=== PATIENT | female | born 1945 | race Caucasian/White ===

== ENCOUNTER → 2016-12-25 | Outpatient (CLI) | payer MEDICARE, BC ==
[~2016-12-25] MED LIST: CEPHALEXIN500 M1 PO; INDAPAMIDE2.5 MG PO; LEVOTHYROXIN0.088 MG PO; LIPITOR 10MG10 MG PO; METFORMIN HCL500 MG PO; NORCO 325 MG-51 TAB PO; PANTOPRAZOLE SO40 MG PO
== END ==
LOC: MC.RAD 11:20
DX: Z12.31 Encounter for screening mammogram for malignant neoplasm of breast (principal)

== ENCOUNTER → 2017-04-24 | Outpatient (CLI) | payer MEDICARE, BC | LOC: SUN.DIA 14:29 | DX: E11.9 Type 2 diabetes mellitus without complications (principal); Z79.4 Long term (current) use of insulin; E78.5 Hyperlipidemia, unspecified; Z68.24 Body mass index [BMI] 24.0-24.9, adult; Z71.3 Dietary counseling and surveillance | CPT/HCPCS: G0108 ==

== ENCOUNTER → 2017-05-08 | Outpatient (CLI) | payer MEDICARE, BC | LOC: SUN.DIA 10:13 | DX: E11.9 Type 2 diabetes mellitus without complications (principal); Z79.4 Long term (current) use of insulin; E78.5 Hyperlipidemia, unspecified; Z68.24 Body mass index [BMI] 24.0-24.9, adult; Z71.3 Dietary counseling and surveillance ==

== ENCOUNTER → 2017-05-22 | Outpatient (CLI) | payer MEDICARE, BC | LOC: SUN.DIA 10:24 | DX: E11.9 Type 2 diabetes mellitus without complications (principal); Z79.4 Long term (current) use of insulin; E78.5 Hyperlipidemia, unspecified; Z68.24 Body mass index [BMI] 24.0-24.9, adult; Z71.3 Dietary counseling and surveillance ==

== ENCOUNTER → 2017-06-11 | Outpatient (CLI) | payer MEDICARE, BC | LOC: SUN.DIA 16:34 | DX: E11.9 Type 2 diabetes mellitus without complications (principal); Z79.4 Long term (current) use of insulin; E78.5 Hyperlipidemia, unspecified | CPT/HCPCS: G0109 ==

== ENCOUNTER → 2017-06-18 | Outpatient (CLI) | payer MEDICARE, BC | LOC: SUN.DIA 12:19 | DX: E11.9 Type 2 diabetes mellitus without complications (principal); Z79.4 Long term (current) use of insulin; E78.5 Hyperlipidemia, unspecified; Z71.3 Dietary counseling and surveillance | CPT/HCPCS: G0109 ==

== ENCOUNTER → 2017-06-19 | Outpatient (CLI) | payer MEDICARE, BC | LOC: SUN.DIA 10:21 | DX: E11.9 Type 2 diabetes mellitus without complications (principal); Z79.4 Long term (current) use of insulin; E78.5 Hyperlipidemia, unspecified; Z71.3 Dietary counseling and surveillance ==

== ENCOUNTER → 2017-07-02 | Outpatient (CLI) | payer MEDICARE, BC | LOC: SUN.DIA 06-25 10:17 | DX: E11.9 Type 2 diabetes mellitus without complications (principal); Z79.4 Long term (current) use of insulin; E78.5 Hyperlipidemia, unspecified; Z71.3 Dietary counseling and surveillance | CPT/HCPCS: G0109 ==

== ENCOUNTER → 2017-07-23 | Outpatient (CLI) | payer MEDICARE, BC | LOC: SUN.DIA 09:53 | DX: E11.9 Type 2 diabetes mellitus without complications (principal); Z79.4 Long term (current) use of insulin; E78.5 Hyperlipidemia, unspecified; Z71.3 Dietary counseling and surveillance | CPT/HCPCS: G0109 ==

== ENCOUNTER → 2017-07-31 | Outpatient (CLI) | payer MEDICARE, BC | LOC: SUN.DIA 10:11 | DX: E11.9 Type 2 diabetes mellitus without complications (principal); Z79.4 Long term (current) use of insulin; E78.5 Hyperlipidemia, unspecified; Z68.25 Body mass index [BMI] 25.0-25.9, adult; Z71.3 Dietary counseling and surveillance ==

== ENCOUNTER → 2018-01-02 | Outpatient (CLI) | payer MEDICARE, BC | LOC: MC.RAD 11:20 | DX: Z12.31 Encounter for screening mammogram for malignant neoplasm of breast (principal) ==

== ENCOUNTER → 2018-03-12 | Outpatient (CLI) | payer MEDICARE, BC | LOC: SUN.DIA 10:15 | DX: E11.9 Type 2 diabetes mellitus without complications (principal); E78.5 Hyperlipidemia, unspecified; Z79.4 Long term (current) use of insulin | CPT/HCPCS: G0270 ==

== ENCOUNTER → 2018-07-08 | Outpatient (CLI) | payer MEDICARE, BC | LOC: SUN.DIA 09:01 | DX: E11.9 Type 2 diabetes mellitus without complications (principal); E78.5 Hyperlipidemia, unspecified; Z79.4 Long term (current) use of insulin ==

== ENCOUNTER → 2018-11-11 | Outpatient (CLI) | payer MEDICARE, BC | LOC: DIA.ED 10:52 → SUN.DIA 16:37 | DX: E11.9 Type 2 diabetes mellitus without complications (principal); E78.5 Hyperlipidemia, unspecified; Z79.4 Long term (current) use of insulin | CPT/HCPCS: G0270 ==

== ENCOUNTER → 2019-01-06 | Outpatient (CLI) | payer MEDICARE, BC | LOC: MC.RAD 08:56 | DX: Z12.31 Encounter for screening mammogram for malignant neoplasm of breast (principal) ==

== ENCOUNTER → 2019-01-13 | Outpatient (CLI) | payer MEDICARE, BC | LOC: COL.RAD 07:16 | DX: K76.89 Other specified diseases of liver (principal); R97.1 Elevated cancer antigen 125 [CA 125]; Z85.42 Personal history of malignant neoplasm of other parts of uterus; Z90.710 Acquired absence of both cervix and uterus; Z90.722 Acquired absence of ovaries, bilateral | CPT/HCPCS: Q9967 ==

== ENCOUNTER → 2019-01-18 | Outpatient (CLI) | payer MEDICARE, BC ==
[~2019-01-18] VITALS: Ht 170.2 cm; Wt 74.0 kg
[2019-01-18] VITALS (11 sets, daily range): BP systolic 138–216; BP diastolic 50–89; PULSE 59–93
[~2019-01-18] MED LIST changes: +ASPIRIN 32325 MG/TAB PO; +B-121000 MCG PO; +CRESTOR 10MG10 MG PO; +FLONASEALLERGY NS; +GLUCOPHAGE XR500 M1 PO; +KLOR-CON M2020 MEQ PO; +LASIX 20MG TABL20 MG PO; +LEVOXYL0.05 MG PO; +LUTEIN20 M1 PO; +MAG-OX 400400 MG/TAB PO; +MOBIC15 MG PO; +OSTEO-BI-FLEX 21 TAB PO; +PROTONIX20 MG PO; +TRESIBA100 UNIT/1 SQ; +VITAMIN D31000 I1 PO; +ZYRTEC 10MG10 MG PO
[2019-01-18 09:16] LABS: INR 0.9 (0.8-3.0); PROTHROMBIN TIME 9.9 SECONDS (9.7-12.8)
--- NOTE | 2019-01-18 09:50 | NUR ---
PT ON TABLE AND ULTRASOUND COMPLETED. DR HOUGH IN ROOM. MONITORING EQUIPMENT PLACED. DR HOUGH ORDERED 1 MG VERSED AND 25 MCG FENTANYL - GIVEN AT 0953. PT COMFORTABLE.
--- NOTE | 2019-01-18 10:00 | NUR ---
PT SOMEWHAT DROWSY AFTER MEDS. NO PAIN NOTED. PROCEDURE COMPLETED.
--- NOTE | 2019-01-18 12:20 | NUR ---
TOOK PT IN WHEELCHAIR TO FRONT LOBBY AND OUT TO THE POV.
== END ==
LOC: COL.RAD 08:38
PROVIDERS: Internal Medicine
DX: R16.0 Hepatomegaly, not elsewhere classified (principal); K76.9 Liver disease, unspecified
CPT/HCPCS: J2250; J3010

== ENCOUNTER → 2019-01-26 | Outpatient (CLI) | payer MEDICARE, BC | LOC: COL.RAD 13:21 | DX: C25.0 Malignant neoplasm of head of pancreas (principal); E11.9 Type 2 diabetes mellitus without complications | CPT/HCPCS: Q9967 ==

== ENCOUNTER → 2019-11-12 | Outpatient (CLI) | payer MEDICARE, BC ==
[~2019-11-12] MED LIST changes: +AMOXICILLIN 8751 TAB PO; +ATIVAN 0.50.5 MG/TAB PO; +COMPAZINE 110 MG/TAB PO; +DECADRON 4MG TAB4 MG PO; +IMODIUM 2MG CAPS2 MG PO; +NOVOLOG FLEX100 U/ML SQ; +ZOFRAN8 MG PO
== END ==
LOC: COL.LAB 09:30
DX: Z20.828 Contact with and (suspected) exposure to other viral communicable diseases (principal)

== ENCOUNTER → 2020-11-16 | Outpatient (CLI) | payer MEDICARE, BC | LOC: COL.RAD 11-15 11:30 | DX: C25.0 Malignant neoplasm of head of pancreas (principal); C78.7 Secondary malignant neoplasm of liver and intrahepatic bile duct; Z90.710 Acquired absence of both cervix and uterus | CPT/HCPCS: Q9967 ==